=== PATIENT | female | born 1990 | race Caucasian/White ===

== ENCOUNTER 2017-02-16 11:23 | Emergency (ER) | payer OTHER | END 2017-02-16 13:08 | disposition home or self-care (01) | LOC: ER 11:23 | DX: M54.5 Low back pain (principal); F17.210 Nicotine dependence, cigarettes, uncomplicated | CPT/HCPCS: 99282 ==

== ENCOUNTER 2017-03-01 20:46 | Emergency (ER) | payer OTHER ==
[2017-03-01 21:23] LABS: URINE BILIRUBIN NEGATIVE (NEGATIVE); URINE BLOOD 2+ (NEGATIVE); URINE GLUCOSE (UA) NORMAL (NORMAL); URINE KETONE NEGATIVE (NEGATIVE); URINE LEUKOCYTE ESTERASE 2+ (NEGATIVE); URINE NITRATE POSITIVE (NEGATIVE); URINE PROTEIN 1+ (NEGATIVE)
[2017-03-01 21:33] LABS: URINE BACTERIA 3+ (NONE SEEN); URINE SQUAMOUS EPITHELIAL CELL 15-20 /[HPF] (NONE SEEN)
== END 2017-03-01 21:48 | disposition home or self-care (01) ==
LOC: ER 20:46
PROVIDERS: General Practice
DX: O23.40 Unspecified infection of urinary tract in pregnancy, unspecified trimester (principal); Z3A.00 Weeks of gestation of pregnancy not specified; Z37.9 Outcome of delivery, unspecified; R11.0 Nausea; R10.32 Left lower quadrant pain; R10.31 Right lower quadrant pain; O99.330 Smoking (tobacco) complicating pregnancy, unspecified trimester; F17.210 Nicotine dependence, cigarettes, uncomplicated
CPT/HCPCS: 81001; 81025; 87086; 87186; 99070; 99283; Q0169